=== PATIENT | male | born 1950 | race Asian ===

== ENCOUNTER 2020-04-17 06:10 | Day surgery (SDC) | payer OTHER ==
[~2020-04-17] VITALS: Ht 167.6 cm; Wt 62.0 kg
[~2020-04-17 06:10] MED LIST: SODIUM CHLORIDE 0.9% 1,000 ML ONE
[2020-04-17] MEDS ORDERED: SODIUM CHLORIDE 0.9% 1,000 ML IV ONE (06:30)
[2020-04-17] MEDS ORDERED: METF-960 PO (07:10)
[2020-04-17] MEDS ORDERED: ATOR20TA86 PO (07:10)
[2020-04-17] MEDS ORDERED: LISI-661 PO (07:10)
[2020-04-17] MEDS ORDERED: AMLO10TA7 PO (07:10)
[2020-04-17] MEDS ORDERED: TAMS-13 PO (07:10)
[2020-04-17 07:17] LABS: GLUCOMETER DEV NAME(LOC) SDS.; GLUCOSE,POINT OF CARE 114 MG/DL (70-110)
[2020-04-17] MEDS ORDERED: MIDAZOLAM HCL 2 MG/2 ML VIAL ONE (08:00)
[2020-04-17] MEDS ORDERED: FentaNYL CITRATE-PF 100 MCG/2 ML VIAL ONE (08:01)
[2020-04-17] MEDS ORDERED: MethylPREDNISolone SOD SUCC 125 MG/2 ML VIAL IVP ONE (08:45)
[2020-04-17] MEDS ORDERED: MethylPREDNISolone SOD SUCC 125 MG/2 ML VIAL ONE (08:59)
[2020-04-17] MEDS ORDERED: ALBUTEROL SULFATE 2.5 MG/0.5 ML NEB SOLUTION NEB ONE (16:30)
[2020-04-17] MEDS ORDERED: LIDOCAINE 2% 30 ML JELLY ONE (16:30)
[2020-04-17] MEDS ORDERED: LIDOCAINE 4% 50 ML SOLUTION ONE (16:30)
[2020-04-17] MEDS ORDERED: BENZOCAINE 20% 50 MCG/SPRAY 57 GM ONE (16:30)
[2020-04-17] MEDS ORDERED: OXYGEN THERAPY IH SCH (20:00)
== END 2020-04-17 10:20 | disposition home or self-care (01) ==
LOC: SURGERY 06:10
PROVIDERS: ATTEND Internal Medicine Critical Care Medicine
DX: R05 Cough (principal); J18.1 Lobar pneumonia, unspecified organism; J34.89 Other specified disorders of nose and nasal sinuses; J98.8 Other specified respiratory disorders; J38.4 Edema of larynx; B37.0 Candidal stomatitis; I10 Essential (primary) hypertension; E78.00 Pure hypercholesterolemia, unspecified; E11.9 Type 2 diabetes mellitus without complications; Z87.891 Personal history of nicotine dependence; Z90.2 Acquired absence of lung [part of]; Z11.59 Encounter for screening for other viral diseases
CPT/HCPCS: 31623; 31624; 71045; 82962; 87015; 87070; 87077; 87101; 87149; 87153; 87186 ×2; 87205; 87206; 87220; 87635; 88108; 88312; J2250; J2930; J3010; J7030; J7613; Z7610